=== PATIENT | female | born 1960 | race Caucasian/White ===

== ENCOUNTER 2017-10-17 01:55 | Outpatient (CLI) | payer MEDICAID, SELFPAY ==
--- NOTE | 2017-10-17 10:41 | DI.REPORT_ITS ---
SYMPTOM/DIAGNOSIS: HYPOXIA, R09.02, PALPITATIONS, R00.2, SLEEP APNEA, Z13.89 PA AND LATERAL CHEST: The heart is normal in size. The lungs are clear. The mediastinal structures and pleura appear intact. CONCLUSION: Normal chest.
== END 2017-10-17 01:56 ==
PROVIDERS: PCP Physician Assistant Medical; Visit Provider Physician Assistant Medical
DX: R09.02 Hypoxemia (principal); G47.39 Other sleep apnea; R00.2 Palpitations
CPT/HCPCS: 71046

== ENCOUNTER 2017-10-29 00:53 | Outpatient (CLI) | payer MEDICAID, SELFPAY ==
--- NOTE | 2017-10-29 10:40 | MERGE_ITS ---
*[facility]* *[facility]* [address] [place] [address] Date of study: 10/29/2017 Transthoracic Echocardiography M-mode, complete 2D, complete spectral Doppler, and color Doppler *STUDY CONCLUSIONS* Summary: 1. Left ventricle: The cavity size was normal. Wall thickness was normal. Systolic function was normal. The estimated ejection fraction was 55-60%. Wall motion was normal; there were no regional wall motion abnormalities. 2. Mitral valve: There was mild to moderate regurgitation. 3. Right ventricle: The cavity size was normal. Wall thickness was normal. Systolic function was normal. 4. Tricuspid valve: There was moderate regurgitation. 5. Pulmonic valve: Peak gradient (S): 4.2mm Hg. 6. Pulmonary arteries: Pulmonary systolic pressure was mildly increased. PA peak pressure: 35mm Hg (S). *PATIENT PRESENTATION* Height: 157.5cm ((62in) ) S/D Pressure: 123 / 75 Weight: 92.5kg ((203.6lb) ) BSA: 2.06m^2 Test start time: 10:45 AM. Test stop time: 11:45 AM. ORDERING Alfredo Cabrera MD REFERRING Alfredo Cabrera MD PERFORMING Unknown PERFORMING [facility] SENIOR COPYWRITER RT Cherri Tolbert)(JAMAAL), DORINDA *PROCEDURE DATA* Procedure information: This study was interpreted by [facility]. Pertinent images and digital data are archived for permanent storage and are available for subsequent review. No prior study was available for comparison. Study status: Routine. Transthoracic echocardiography. M-mode, complete 2D, complete spectral Doppler, and color Doppler. A Transthoracic Echocardiogram was performed. Scanning was performed from the parasternal, apical, subcostal, and suprasternal notch acoustic windows. Images were obtained using an [id number] cardiac ultrasound machine. Image quality was adequate. Study completion: The patient tolerated the procedure well. History: PMH: Hypoxia, sleep apnea eval. palpitations. *CARDIAC ANATOMY* Left ventricle: The cavity size was normal. Wall thickness was normal. Systolic function was normal. The estimated ejection fraction was 55-60%. Wall motion was normal; there were no regional wall motion abnormalities. Aortic valve: Trileaflet; normal thickness leaflets. Mobility was not restricted. Doppler: Transvalvular velocity was within the normal range. There was no stenosis. There was no significant regurgitation. VTI ratio of LVOT to aortic valve: 0.72. Valve area (VTI): 2.3cm^2. Indexed valve area (VTI): 1.1cm^2/m^2. Peak velocity ratio of LVOT to aortic valve: 0.75. Valve area (Vmax): 2.3cm^2. Indexed valve area (Vmax): 1.1cm^2/m^2. Mean velocity ratio of LVOT to aortic valve: 0.64. Valve area (Vmean): 2cm^2. Indexed valve area (Vmean): 1cm^2/m^2. Mean gradient (S): 3.6mm Hg. Peak gradient (S): 6.2mm Hg. Aorta: Aortic root: The aortic root was normal in size. Ascending aorta: The ascending aorta was normal in size. Mitral valve: Mildly thickened leaflets. Mobility was not restricted. Doppler: Transvalvular velocity was within the normal range. There was no evidence for stenosis. There was mild to moderate regurgitation. Valve area by pressure half-time: 4.4cm^2. Indexed valve area by pressure half-time: 2.1cm^2/m^2. Peak gradient (D): 3.9mm Hg. Left atrium: The atrium was normal in size. Atrial septum: Poorly visualized. Right ventricle: The cavity size was normal. Wall thickness was normal. Systolic function was normal. Pulmonic valve: Poorly visualized. Doppler: Transvalvular velocity was within the normal range. There was no evidence for stenosis. There was mild regurgitation. Peak gradient (S): 4.2mm Hg. Tricuspid valve: Structurally normal valve. Doppler: Transvalvular velocity was within the normal range. There was no evidence for stenosis. There was moderate regurgitation. Pulmonary artery: Poorly visualized. Pulmonary systolic pressure was mildly increased. Right atrium: The atrium was normal in size. Pericardium: There was no pericardial effusion. Systemic veins: Inferior vena cava: Well visualized. The vessel was patent and normal in size. The respirophasic diameter changes were in the normal range (greater than or equal to 50%), consistent with normal central venous pressure. Baseline ECG: Normal sinus rhythm. Measurements Left ventricle Value Reference LV ID, ED, PLAX 5.0 cm 3.5 - 6.0 LV ID, ES, PLAX 3.7 cm 2.1 - 4.0 LV PW thickness, ED, PLAX 0.9 cm LV end-diastolic volume, 1-p A2C 71 ml LV ejection fraction, 1-p A2C 63 % LV end-diastolic volume, 1-p A4C 66 ml LV ejection fraction, 1-p A4C 58 % LV e', lateral 0.107 m/sec LV E/e', lateral 9 LV e', medial 0.107 m/sec LV E/e', medial 9 LV e', average 0.107 m/sec LV E/e', average 9 Ventricular septum Value Reference IVS thickness, ED, PLAX 0.9 cm LVOT Value Reference LVOT ID, A-P 2.0 cm LVOT area 3.2 cm^2 LVOT peak velocity, S 0.93 m/sec LVOT mean velocity, S 0.58 m/sec LVOT VTI, S 19.5 cm LVOT peak gradient, S 3.5 mm Hg LVOT mean gradient, S 1.6 mm Hg Stroke volume (SV), LVOT DP 61 ml Stroke index (SV/bsa), LVOT DP 30 ml/m^2 Aortic valve Value Reference Aortic valve peak velocity, S 1.2 m/sec Aortic valve mean velocity, S 0.91 m/sec Aortic valve VTI, S 27.0 cm Aortic mean gradient, S 3.6 mm Hg Aortic peak gradient, S 6.2 mm Hg VTI ratio, LVOT/AV 0.72 Aortic valve area, VTI 2.3 cm^2 Velocity ratio, peak, LVOT/AV 0.75 Aortic valve area, peak velocity 2.3 cm^2 Velocity ratio, mean, LVOT/AV 0.64 Aortic valve area, mean velocity 2 cm^2 Aortic valve area/bsa, mean velocity 1 cm^2/m^2 Aorta Value Reference Aortic root ID, ED 3.1 cm Ascending aorta ID, A-P, S 3.1 cm RVOT Value Reference RVOT VTI, S 13.7 cm Left atrium Value Reference LA ID, A-P, ES 3.6 cm LA ID/bsa, A-P 1.8 cm/m^2 <=2.2 LA area, ES, A4C 16.7 cm^2 8.8 - 23.4 LA area, ES, A2C 19 cm^2 LA volume/bsa, ES, 1-p A4C 25 ml/m^2 LA volume, ES, 2-p 52 ml LA volume/bsa, ES, 2-p 25 ml/m^2 LA/aortic root ratio 1.18 Mitral valve Value Reference Mitral E-wave peak velocity 0.99 m/sec Mitral A-wave peak velocity 0.73 m/sec Mitral deceleration time 173 ms 150 - 230 Mitral pressure half-time 50 ms Mitral peak gradient, D 3.9 mm Hg Mitral E/A ratio, peak 1.36 Mitral valve area, PHT, DP 4.4 cm^2 Pulmonary arteries Value Reference PA pressure, S, DP (H) 35 mm Hg <=30 Tricuspid valve Value Reference Tricuspid regurg peak velocity 2.7 m/sec Tricuspid peak RV-RA gradient 28.9 mm Hg Right atrium Value Reference RA area, ES, A4C 15.6 cm^2 8.3 - 19.5 Systemic veins Value Reference Estimated CVP 10 mm Hg Right ventricle Value Reference RV pressure, S, DP (H) 39 mm Hg <=30 Pulmonic valve Value Reference Pulmonic peak gradient, S 4.2 mm Hg Legend: (L) and (H) sharon values outside specified reference range. I have personally reviewed the images and have reviewed and edited the reported findings. Electronically signed by Ankur Yusuf 10/29/2017 17:59
== END 2017-10-29 01:13 ==
PROVIDERS: PCP Physician Assistant Medical; Visit Provider Internal Medicine
DX: R00.2 Palpitations (principal); R09.02 Hypoxemia; I08.1 Rheumatic disorders of both mitral and tricuspid valves
CPT/HCPCS: 93306

== ENCOUNTER 2017-10-30 03:56 | Outpatient (CLI) | payer MEDICAID, SELFPAY | END 2017-10-30 04:16 | PROVIDERS: PCP Physician Assistant Medical; Visit Provider Physician Assistant Medical | DX: R09.02 Hypoxemia (principal) ==

== ENCOUNTER 2017-11-06 02:48 | Outpatient (CLI) | payer MEDICAID, SELFPAY ==
--- NOTE | 2017-11-06 11:07 | PFT_ITS ---
PULMONARY FUNCTION TEST REPORT DATE OF SERVICE: November 06, 2017 REQUESTING PROVIDER: Jody Pichardo N.P. Spirometry shows no evidence of obstructive airways disease, no bronchodilator response. Lung volumes show mild restriction. Diffusion capacity normal. Airways resistance normal. IMPRESSION: While there appears to be mild restrictive physiology, this may be an effort-related phenomenon, as residual volume is extremely low. Further clinical evaluation for possible underlying restrictive lung disease versus respiratory neuromuscular dysfunction or weakness may be considered. Therefore clinical correlation recommended. PAULETTE/alcides D/ SEE SCANNED DOCUMENT IN THE EMR FOR DATA AND GRAPHS
[2017-11-06] MEDS: Albuterol HFA 18 GM 200 PUFF INH IH (13:51)
[2017-11-06] MEDS: Inhaler, Assist Device 1 EACH MC (13:51)
== END 2017-11-06 03:08 ==
PROVIDERS: PCP Physician Assistant Medical; Visit Provider Physician Assistant Medical
DX: R09.02 Hypoxemia (principal)
CPT/HCPCS: 94060; 94150; 94726; 94729

== ENCOUNTER 2017-12-17 13:37 | Outpatient (REF) | payer MEDICAID, SELFPAY ==
[2017-12-17 21:51] LABS: Anion Gap 7.6 mmol/L (3-11); BUN 17 mg/dL (7-18); CO2 30.4 mmol/L (21.0-32.0); CREATININE 0.77 mg/dL (0.55-1.02); Calcium 9.3 mg/dL (8.5-10.1); Chloride 102 mmol/L (98-107); Cholesterol 300 mg/dL (50-200); Glucose 84 mg/dL (70-100); HDL Cholesterol 53 mg/dL (40-60); LDL CHOLESTEROL 215 mg/dL (<100); Potassium 4.7 mmol/L (3.5-5.1); Sodium 140 mmol/L (136-145); TSH 1.76 uIU/mL (0.358-3.74); Triglyceride 146 mg/dL (30-150)
== END 2017-12-17 13:57 ==
LOC: NCHCN 13:37
PROVIDERS: PCP Physician Assistant Medical; Visit Provider Physician Assistant Medical
DX: Z13.29 Encounter for screening for other suspected endocrine disorder (principal); Z13.228 Encounter for screening for other metabolic disorders; Z13.220 Encounter for screening for lipoid disorders; Z00.00 Encounter for general adult medical examination without abnormal findings
CPT/HCPCS: 80048; 80061; 83721; 84443

== ENCOUNTER 2018-09-21 11:51 | Outpatient (REF) | payer MEDICAID, SELFPAY ==
[2018-09-21 19:23] LABS: BUN 10 mg/dL (7-18); CREATININE 0.74 mg/dL (0.55-1.02); Calculated LDL 179 mg/dL; Cholesterol 247 mg/dL (50-200); HDL Cholesterol 49 mg/dL (40-60); Triglyceride 95 mg/dL (30-150)
[2018-09-21 19:59] LABS: Hemoglobin A1C 5.7 % (4.5-6.2)
== END 2018-09-21 12:11 ==
LOC: NCHCN 11:51
PROVIDERS: PCP Physician Assistant Medical; Visit Provider Nurse Practitioner Family
DX: E78.5 Hyperlipidemia, unspecified (principal); R73.9 Hyperglycemia, unspecified
CPT/HCPCS: 80061; 83721; 84520; 82565; 83036

== ENCOUNTER 2018-10-27 10:46 | Outpatient (REF) | payer MEDICAID, SELFPAY | END 2018-10-27 11:06 | LOC: NCHCN 10:46 | PROVIDERS: PCP Physician Assistant Medical; Visit Provider Nurse Practitioner Family | DX: N39.0 Urinary tract infection, site not specified (principal) | CPT/HCPCS: 87086 ==

== ENCOUNTER 2019-11-03 10:37 | Outpatient (REF) | payer MEDICAID, SELFPAY ==
[2019-11-03 22:45] LABS: ALT 26 U/L (14-59); AST 20 U/L (15-37); Alkaline Phosphatase 72 U/L (46-116); Anion Gap 6.6 mmol/L (3-11); BUN 12 mg/dL (7-18); Bilirubin, Total 0.4 mg/dL (0.2-1.0); CO2 28.4 mmol/L (21.0-32.0); CREATININE 0.69 mg/dL (0.55-1.02); Calculated LDL 222 mg/dL (<100); Chloride 103 mmol/L (98-107); Cholesterol 295 mg/dL (<200); Glucose 88 mg/dL (74-106); HDL Cholesterol 58 mg/dL (40-60); Potassium 4.1 mmol/L (3.5-5.1); Sodium 138 mmol/L (136-145); Triglyceride 77 mg/dL (<150)
== END 2019-11-03 10:57 ==
LOC: NCHCN 10:37
PROVIDERS: PCP Physician Assistant Medical; Visit Provider Physician Assistant
DX: E78.5 Hyperlipidemia, unspecified (principal)
CPT/HCPCS: 80053; 80061

== ENCOUNTER 2020-01-31 21:26 | Outpatient (REF) | payer MEDICAID, SELFPAY ==
[2020-01-31 19:37] LABS: HCT 41.6 % (36.0-46.0); HGB 13.4 g/dL (11.2-15.7); MCH 29.1 pg (27.0-33.0); MCHC 32.2 % (32.0-36.0); MCV 90.2 fL (80-95); MPV 10.2 fL (8.0-11.0); Platelet Count 291 10^3/uL (130-400); RBC 4.61 10^6/uL (3.93-5.22); RDW 13.3 % (11.7-14.6); RDW-SD 43.8 fL; WBC 10.93 10^3/uL (4.4-10.8)
[2020-02-02 12:51] LABS: IgA 159 mg/dL (85-499); Interpretation (See Note); Tissue Transglutaminase IgA <1.2 U/mL (<4.0)
== END 2020-01-31 21:46 ==
LOC: NCHCN 21:26
PROVIDERS: PCP Physician Assistant Medical; Visit Provider Internal Medicine
DX: K52.9 Noninfective gastroenteritis and colitis, unspecified (principal)
CPT/HCPCS: 82784; 83516; 85027

== ENCOUNTER 2020-02-08 18:51 | Outpatient (REF) | payer MEDICAID, SELFPAY ==
[2020-02-08 20:21] LABS: ALT 69 U/L (14-59); AST 46 U/L (15-37); Albumin 4.1 g/dL (3.4-5.0); Alkaline Phosphatase 79 U/L (46-116); Bilirubin, Total 0.4 mg/dL (0.2-1.0); Calculated LDL 108 mg/dL (<100); Cholesterol 180 mg/dL (<200); HDL Cholesterol 57 mg/dL (40-60); Total Protein 7.2 g/dL (6.4-8.2); Triglyceride 76 mg/dL (<150)
== END 2020-02-08 19:11 ==
LOC: NCHCN 18:51
PROVIDERS: PCP Physician Assistant Medical; Visit Provider Physician Assistant
DX: E78.5 Hyperlipidemia, unspecified (principal)
CPT/HCPCS: 80061; 80076

== ENCOUNTER 2020-05-19 15:17 | Outpatient (REF) | payer MEDICAID, SELFPAY ==
--- NOTE | 2020-05-19 11:30 | PAPFT_PTH ---
PATIENT: Meredith Lizama LOC: [facility]#:[id number] AGE/SX: 60/F ROOM: RE05/19/[address]: Gina Sifuentes : 1960 BED: DIS: 05/19/2020 SPEC #: [id number] RECD: 05/19/20 17:31 STATUS: ANGIE DOZIER #: [id number] AUDREY: 05/19/20 11:[address]: Gina Sifuentes DEPT: [facility] Cytology RECD BY: Priya Cross ENTERED: 05/19/20 17:31 SP TYPE: PAPFT OTHR DR: Delroy Logan V Tissues: 1 - CX/ENDOCX FOR PAP SMEARS Procedures: PAP THIN PREP/UVM Screening HPV DNA PROBE Comments: [id number]
== END 2020-05-19 15:18 | disposition home or self-care (01) ==
LOC: NCHCN 15:17
PROVIDERS: PCP Physician Assistant Medical; Visit Provider Physician Assistant
DX: Z12.4 Encounter for screening for malignant neoplasm of cervix (principal); Z01.419 Encounter for gynecological examination (general) (routine) without abnormal findings; Z11.51 Encounter for screening for human papillomavirus (HPV)
CPT/HCPCS: 88142; 87624

== ENCOUNTER 2020-11-15 10:56 | Outpatient (REF) | payer MEDICAID, SELFPAY ==
[2020-11-15 20:25] LABS: Anion Gap 7.3 mmol/L (3-11); BUN 15 mg/dL (7-18); CO2 29.7 mmol/L (21.0-32.0); CREATININE 0.7 mg/dL (0.55-1.02); Calcium 8.8 mg/dL (8.5-10.1); Chloride 104 mmol/L (98-107); Glucose 87 mg/dL (74-106); Potassium 4.4 mmol/L (3.5-5.1); Sodium 141 mmol/L (136-145)
== END 2020-11-15 10:57 | disposition home or self-care (01) ==
LOC: NCHCN 10:56
PROVIDERS: PCP Physician Assistant Medical; Visit Provider Physician Assistant
DX: R73.03 Prediabetes (principal); E78.5 Hyperlipidemia, unspecified
CPT/HCPCS: 80048

== ENCOUNTER 2021-12-10 08:12 | Outpatient (CLI) | payer MEDICAID, SELFPAY ==
--- NOTE | 2021-12-10 08:00 | RT.EKG_ITS ---
APPROVED REPORT Exam: Resting ECG Reason for Exam: palpitations Patient Location: O HR:77 bpm ECG Measurements Heart Rate 77 AXIS VA 122 P 40 QRSd 101 QRS 3 QT 373 T 42 QTc 423 Conclusion Sinus rhythm...normal P axis, V-rate 50- 99 Normal Electrocardiogram
== END 2021-12-10 08:13 | disposition home or self-care (01) ==
LOC: DI.CARD 08:13
PROVIDERS: PCP Physician Assistant Medical; Visit Provider Internal Medicine Cardiovascular Disease
DX: R00.2 Palpitations (principal)
CPT/HCPCS: 93010

== ENCOUNTER → 2021-12-25 11:27 | Outpatient (CLI) | payer MEDICAID, SELFPAY ==
--- NOTE | 2021-12-25 09:15 | DI.US_ITS ---
APPROVED REPORT EXAM: Comprehensive 2D, Doppler, and color-flow Echocardiogram Patient Location: Out-Patient Resin Painter: Marjorie Ortiz RDCS (AE) Indications: Palpitations, MR Other Information Study Quality: Adequate Conclusion Normal left ventricular wall thickness and chamber size. Estimated ejection fraction is 60 to 65%. Wall motion is normal Normal right ventricular size and systolic function Both atria are normal in size There are no structural valvular abnormalities There is trace mitral regurgitation, trace to mild tricuspid regurgitation Estimated right ventricular systolic pressure is 30 mmHg Wall motion Left Ventricle The left ventricle is normal size. The left ventricular systolic function is normal. The left ventric ular ejection fraction is within the normal range. There is normal left ventricular wall thickness. T here is normal LV segmental wall motion. There is no ventricular septal defect visualized. LVEF is 60 -65%. Right Ventricle The right ventricle is normal size. The right ventricular systolic function is normal. The RVSP is 29 .9mmHg. Atria The left atrium size is normal. The right atrium size is normal. The interatrial septum is intact wit h no evidence for an atrial septal defect. Aortic Valve The aortic valve is normal in structure. Aortic valve is trileaflet. There is no aortic valvular sten osis. No aortic regurgitation is present. Mitral Valve The mitral valve is normal in structure. No evidence of mitral valve stenosis. Trace mitral regurgita tion. Tricuspid Valve The tricuspid valve is normal in structure. There is no tricuspid valve stenosis. Trace to mild tricu spid regurgitation. Pulmonic Valve Pulmonic valve is not well visualized. There is no pulmonic valvular stenosis. Trace to mild pulmonic regurgitation. Great Vessels The aortic root is normal in size. The ascending aorta is normal in size. Aortic arch is normal in ca liber. IVC is normal in size and collapses >50% with inspiration. Pericardium There is no pericardial effusion. 2D Dimensions IVSD d PLAX 0.86 cm F: 0.6-1.0 LV Vol A2C d MOD 113.7 mL LVPW d PLAX 0.88 cm F: 0.6 - 1.0 LV Vol A4C d MOD 78.1 mL LVID d PLAX 4.97 cm F: 3.8 - 5.2 LA vol/ BSA A2C s A-L 25.7 mL/m2 LVDs 3.25 cm F: 2.2 - 3.5 LA vol/ BSA A4C s A-L 17.3 mL/m2 Ao Root d 2.66 cm F: 2.7 - 3.3 LA Vol/ BSA Biplane s A-L 21.2 mL/m2 RA Area A4C 11.78 cm2 LA Area A4C s MOD 13.26 cm2 RA Vol/ BSA A4C s A-L 15.9 mL/m2 LA Area A2C s MOD 16.06 cm2 Ao Asc Diam d 2.87 cm F: 2.3 - 3.1 LV EF A4C MOD 65.2 % LV EF Teichholz 62.7 % LV EF A2C MOD 60.7 % LVEF (Hugo's) 61.69 % F: 54 - 74 LV EF Biplane MOD 61.7 % LV Volume 74.44 mL F: 46 - 106 SV 59.36 mL LV Volume Index 40.90 mL/m2 F: 29 - 61 SV Index 32.48 mL/m2 LV Vol Biplane MOD 96.2 mL FS 34.00 % M-Mode TAPSE 2.65 cm (M/F) >1.7 LV Diastology MV E' medial 0.114 (>0.07 m/s) E/A Ratio 1.2 LV E/e MED 7.10 (<14) MV E Vmax 0.81 (0.4-1.3 m/s) MV E' lateral 0.119 (>0.1 m/s) MV A Vmax 0.70 (0.4-1.3 m/s) LV E/e LAT 6.80 (<14) MV E/A Ratio 1.10 MV E/E' medial 7.11 MV E/E' lateral 6.82 Aortic Valve LVOT Area 3.18 cm2 AoV Area Vmax 2.11 cm2 LVOT Vmax 0.89 m/s AoV Area/ BSA (Vmax) 1.16 cm2/m2 LVOT Mean Manan. 0.58 m/s JAQUAN Mean Manan. 2.01 cm2 LVOT Peak Grad 3.2 mmHg JAQUAN Mean Manan. Index 1.10 cm2/m2 LVOT Mean Grad 1.6 mmHg LVOT VTI 0.214 m LVOT Diam s 2.00 cm AoV Vmax 1.34 m/s Velocity Ratio 0.66 AoV Mean Manan. 0.92 m/s AoV Peak Grad 7.2 mmHg LVOT SV 67.97 mL AoV Mean Grad 3.9 mmHg AoV VTI 0.281 m AoV Area VTI 2.42 cm2 AoV Area/ BSA (VTI) 1.32 cm/m2 Mitral Valve MV DT 184 (160-240 msec) MV PHT 53 msec MV Area PHT 4.13 cm2 MV VTI 0.333 m MV Area VTI 2.04 (4.0-6.0 cm2) Pulmonary Valve PV Vmax 1.06 (0.5-1.5 m/s) RVOT Peak Gr. 1.58 mmHg PV Peak Grad 4.5 mmHg RVOT Mean Gr. 0.85 mmHg PV Mean Grad 2.4 mmHg RVOT VTI 0.154 m PV VTI 0.232 m RVOT Vmax 0.63 m/s Tricuspid Valve TR Peak Grad 26.8 mmHg TR Vmax 2.59 m/s RA Pressure 3.00 mmHg RVSP (TR) 29.9 mmHg
== END ==
PROVIDERS: PCP Physician Assistant; Visit Provider Internal Medicine Cardiovascular Disease
DX: I34.0 Nonrheumatic mitral (valve) insufficiency (principal); R00.2 Palpitations
CPT/HCPCS: 93306

== ENCOUNTER 2022-07-23 13:37 | Outpatient (REF) | payer MEDICAID, SELFPAY ==
[2022-07-23 18:33] LABS: HCT 41.2 % (36.0-46.0); HGB 13.4 g/dL (11.2-15.7); MCH 29.5 pg (27.0-33.0); MCHC 32.5 % (32.0-36.0); MCV 91 fL (80-95); MPV 10.4 fL (8.0-11.0); Platelet Count 280 10^3/uL (130-400); RBC 4.55 10^6/uL (3.93-5.22); RDW 13.6 % (11.7-14.6); RDW-SD 45.6 fL; WBC 7.64 10^3/uL (4.4-10.8)
[2022-07-23 18:53] LABS: ALT 30 U/L (14-59); AST 27 U/L (15-37); Alkaline Phosphatase 76 U/L (46-116); Anion Gap 6.9 mmol/L (3-11); BUN 15 mg/dL (7-18); Bilirubin, Total 0.5 mg/dL (0.2-1.0); CO2 29.1 mmol/L (21.0-32.0); CREATININE 0.7 mg/dL (0.55-1.02); Calcium 8.8 mg/dL (8.5-10.1); Calculated LDL 98 mg/dL (<100); Chloride 106 mmol/L (98-107); Cholesterol 170 mg/dL (<200); Estimated GFR 98.95 (mL/min/1.73m2); Glucose 94 mg/dL (74-106); HDL Cholesterol 65 mg/dL (40-60); Sodium 142 mmol/L (136-145); Total Protein 7.5 g/dL (6.4-8.2); Triglyceride 35 mg/dL (<150)
[2022-07-23 19:08] LABS: Vitamin D 25 Total 31.6 ng/mL (30-100)
== END 2022-07-23 13:38 | disposition home or self-care (01) ==
LOC: NCHCN 13:37
PROVIDERS: PCP Physician Assistant; Visit Provider Physician Assistant
DX: R73.03 Prediabetes (principal); K75.81 Nonalcoholic steatohepatitis (NASH); E78.5 Hyperlipidemia, unspecified; E55.9 Vitamin D deficiency, unspecified
CPT/HCPCS: 80053; 80061; 82306; 85027

== ENCOUNTER → 2022-10-15 12:34 | Outpatient (CLI) | payer MEDICAID, SELFPAY ==
--- NOTE | 2022-10-15 | DI.RAD_ITS ---
Exam(s) XR HIP RT COMPLETE AP PELVIS EXAM: XR HIP RT COMPLETE AP PELVIS CLINICAL HISTORY: RT HIP WANG, M25.551. TECHNIQUE: 2D digital imaging was performed. COMPARISON: No exams were available for comparison FINDINGS: Two views: There is no evidence of pelvic nor hip fracture. Minimal hip joint narrowing bilaterally. On the ad ditional lateral view of the right hip there is femoral head osteophyte noted. Bone density normal. No osseous lesions. IMPRESSION: Some degenerative change in the right hip as described above. DATA REPOSITORY: RADIATION DOSE DELIVERED:
== END ==
PROVIDERS: PCP Physician Assistant; Visit Provider Physician Assistant
DX: M16.11 Unilateral primary osteoarthritis, right hip (principal)
CPT/HCPCS: 73502

== ENCOUNTER → 2022-12-19 02:32 | Outpatient (CLI) | payer MEDICAID, SELFPAY ==
--- NOTE | 2022-12-19 | DI.MRI_ITS ---
Exam(s) MR LOWER JOINT RT WO EXAM: MR LOWER JOINT RT WO CLINICAL HISTORY: RT HIP PAIN, M25.551 TECHNIQUE: Multiplanar multisequence MRI of Pelvis was performed COMPARISON: CR XR HIP RT COMPLETE AP PELVIS from 10/15/2022 FINDINGS: Bones: There is no fracture or contusion pattern. There is a small focus of high signal in the righ t superior acetabulum. Findings may be degenerative. There is mild spurring at the margin of the fe moral heads. Joints: No significant joint effusion . The SI joints and symphysis pubis are well maintained. Musculotendinous structures: Musculotendinous structures demonstrate no abnormality. Intrapelvic structures demonstrate no significant abnormality. IMPRESSION: Focus of marrow edema in the right superior acetabulum may be degenerative. No evidence joint effus ion, tendon tear or inflammation. DATA REPOSITORY:
== END ==
PROVIDERS: PCP Physician Assistant; Visit Provider Physician Assistant
DX: M25.551 Pain in right hip (principal)
CPT/HCPCS: 73721

== ENCOUNTER 2023-07-24 16:13 | Outpatient (REF) | payer MEDICAID, SELFPAY ==
[2023-07-24 21:32] LABS: ALT 25 U/L (14-59); AST 24 U/L (15-37); Alkaline Phosphatase 72 U/L (46-116); Anion Gap 10.5 mmol/L (3-11); BUN 14 mg/dL (7-18); Bilirubin, Total 0.3 mg/dL (0.2-1.0); CO2 26.5 mmol/L (21.0-32.0); CREATININE 0.7 mg/dL (0.55-1.02); Calcium 9.1 mg/dL (8.5-10.1); Calculated LDL 201 mg/dL (<100); Chloride 106 mmol/L (98-107); Cholesterol 277 mg/dL (<200); Estimated GFR 98.34 (mL/min/1.73m2); Glucose 99 mg/dL (74-106); HDL Cholesterol 66 mg/dL (40-60); Potassium 4.1 mmol/L (3.5-5.1); Sodium 143 mmol/L (136-145); Total Protein 7.5 g/dL (6.4-8.2); Triglyceride 52 mg/dL (<150)
== END 2023-07-24 16:14 | disposition home or self-care (01) ==
LOC: NCHCN 16:13
PROVIDERS: PCP Physician Assistant; Visit Provider Physician Assistant
DX: E78.5 Hyperlipidemia, unspecified (principal)
CPT/HCPCS: 80053; 80061

== ENCOUNTER 2023-09-01 15:04 | Outpatient (REF) | payer MEDICAID, SELFPAY ==
[2023-09-01 20:04] LABS: HCT 42.1 % (36.0-46.0); HGB 13.7 g/dL (11.2-15.7); MCH 29.8 pg (27.0-33.0); MCHC 32.5 % (32.0-36.0); MCV 92 fL (80-95); MPV 10.5 fL (8.0-11.0); Platelet Count 299 10^3/uL (130-400); RDW 13.9 % (11.7-14.6); RDW-SD 46.4 fL; WBC 8.54 10^3/uL (4.4-10.8)
== END 2023-09-01 15:05 | disposition home or self-care (01) ==
LOC: NCHCN 15:04
PROVIDERS: PCP Physician Assistant; Visit Provider Nurse Practitioner Family
DX: R10.9 Unspecified abdominal pain (principal)
CPT/HCPCS: 85027

== ENCOUNTER → 2023-09-11 01:42 | Outpatient (CLI) | payer MEDICAID, SELFPAY ==
--- NOTE | 2023-09-11 | DI.CT_ITS ---
Exam(s) CT ABDOMEN PELVIS W EXAM: CT ABDOMEN PELVIS W CLINICAL HISTORY: ABD PAIN, R10.9. TECHNIQUE: Imaging Protocol: Axial computed tomography images with coronal and sagittal reformatted images were created and reviewed CONTRAST MATERIAL: Intravenous: Omnipaque-350 100cc Oral: Yes. Oral contrast was also administered for bowel opacification. COMPARISON: No exams were available for comparison FINDINGS: VISUALIZED LUNG BASES: No nodules nor pleural effusions evident. ABDOMEN: There is no ascites. LIVER: There are no focal hepatic lesions evident. No dilated intrahepatic ducts. GALLBLADDER/BILIARY: No obvious gallbladder pathology. CBD is not dilated. PANCREAS: No evidence of pancreatic mass nor dilatation of the pancreatic duct. SPLEEN: Spleen is not enlarged. No obvious intrasplenic lesions. Splenic and portal veins are paten t. ADRENALS: There are no significant adrenal masses. KIDNEYS:Left kidney unremarkable. There is a large calculus in the right renal pelvis which measures 1.5 x 0.9 x 1.1 cm. There are other smaller calculi in the lower pole infundibulum of the right kid kayode. There is some enhancement in the wall of the right renal pelvis and upper right ureter. There no calculi seen lower down in the right ureter nor within the lumen of the urinary bladder. There is very mild dilatation of the infundibulum of the right kidney. Right renal vein is patent. There is no perinephric streaking.. ABDOMINAL AORTA: Abdominal aorta is not enlarged. LYMPH NODES:There is no retroperitoneal nor paraaortic adenopathy. ABDOMINAL WALL: No evidence of significant anterior abdominal wall nor inguinal hernia. GI: There is no evidence of bowel obstruction, free air, nor abscess. PELVIS: GI: No evidence of appendicitis.There is sigmoid diverticulosis without evidence of obvious acute div erticulitis. LYMPH NODES: There is no intrapelvic nor inguinal adenopathy. REPRODUCTIVE: Uterus and adnexal regions appear unremarkable. There is no free fluid in the pelvis. URINARY BLADDER: No calculi nor obvious masses evident OSSEOUS: No fractures and no significant osseous lesions. Disc space narrowing at L5-S1. No listhesis.. IMPRESSION: 1. There is a prominent 15 x 9 x 11 mm calculus in the right renal pelvis with some uniform enhanceme nt of the right renal pelvis and upper right ureter wall and mild ipsilateral hydronephrosis. There are 2 other smaller calculi in the lower pole region of the ipsilateral-right kidney. Opposite-left kidney appears unremarkable. 2. Sigmoid diverticulosis without evidence of acute diverticulitis. No appendicitis. RADIATION DOSE DELIVERED: Total DLP DATA REPOSITORY: All CT scans at this facility are submitted to the National Radiology Data Registry (NRDR) Dose Index Registry (DIR) with the [employer] (ACR). RADIATION OPTIMIZATION: All CT scans at this facility use at least one of these dose optimization te chniques: automated exposure control; mA and/or kV adjustment per patient size (includes targeted exa ms where dose is matched to clinical indication); or iterative reconstruction.
[2023-09-11 09:02] LABS: CREATININE 0.8 mg/dL (0.55-1.02); Estimated GFR 83.78 (mL/min/1.73m2)
[2023-09-11] MEDS: Barium Sulfate 2% W/V-Berry Smoothie 450 ML BTL PO ×2 (09:05→09:06)
[2023-09-11] MEDS: Omnipaque 350 MG/ML 100 ML BTL IJ (11:10)
== END ==
PROVIDERS: PCP Nurse Practitioner Family; Visit Provider Nurse Practitioner Family
DX: R10.84 Generalized abdominal pain (principal); N20.2 Calculus of kidney with calculus of ureter; N20.0 Calculus of kidney; K57.30 Diverticulosis of large intestine without perforation or abscess without bleeding; Z01.812 Encounter for preprocedural laboratory examination
CPT/HCPCS: 74177; 82565; J3490

== ENCOUNTER 2023-09-16 11:42 | Day surgery (SDC) | payer MEDICAID, SELFPAY ==
--- NOTE | 2023-09-15 13:26 | PDOC.DSDIS_ITS ---
Date of service: 09/16/23 Time of Service: 16:49 Discharge Plan Disposition Patient Disposition: Home Condition: Good Discharge Details Reason For Visit: stomach/colon scope Attending Provider: Josefa Peace Primary Care Provider: Pamela Sanchez Home Meds and New Rx's Prescriptions: Continued magnesium chloride 70 mg tablet,delayed release (DR/EC) 210 mg PO DAILY famotidine [Pepcid] 40 mg tablet 40 mg PO BID Qty: 60 4RF ketoconazole 2 % cream 1 applic topical BID Discontinued naproxen 500 mg tablet 500 mg PO BID PRN (Reason: pain) Qty: 60 0RF ibuprofen 800 mg tablet 800 mg PO BID PRN Discharge Instructions Additional Instructions: DSU Colonoscopy Post- Op Instructions Instructions for Everyone who is given Anesthesia: For your safety, please do the following for the next twenty-four (24) hours: *Do Not operate a motor vehicle (car, truck, motorcycle, etc.) *Do Not drink alcoholic beverages or use any recreational drugs for the first 24 hours or while taking pain medications. The medications in your body may have a reaction that can be dangerous. *Do Not make any important decisions or sign any important papers. Findings: Hiatal hernia Diverticula and colon polyps Internal hemorrhoids Follow up: My office will send you a letter in 2 to 3 weeks time with the results of the biopsies and when we want you to repeat the colonoscopy. Make sure you are moving your bowels on a regular basis and avoid straining. If you have problems with constipation/straining to move your bowels, then it is recommended you start a fiber supplement such as Metamucil. 1. No lifting over 20 pounds or strenuous activity for the first 24 hours after your procedure. After 24 hours there are no restrictions on your activity but you may feel fatigued for a few days. 2. After you arrive home you may have a light meal and return to your normal diet as you can tolerate it without feeling sick to your stomach. 3. You may have a bloated, gaseous feeling in your belly (abdomen) after a colonoscopy. Passing gas and belching will help. Walking or lying down on your left side with your knees flexed may relieve the discomfort. Call the office at [phone] (Office) or [phone] (Hospital) right away if you notice any of the following: a.Vomiting of blood or ?coffee ground stools?. b.Rectal bleeding 1Tbsp, blood clots or continuous bleeding. c.Severe belly (abdominal) pain. d.A hard distended belly (abdomen) and an inability to pass gas. 4. Please don?t expect to have a normal BM (bowel movement) for 2-3 days after your procedure. 5. If there are questions regarding the findings of your procedure, please conta ct your doctor 6. If you are unable to contact your doctor with a problem, contact the hospital at [phone]. 7. Continue all your regular medications unless directed otherwise. I understand the above instructions and have no questions. Signature of Patient or Adult Escort Name of Responsible Adult Escort Signature of Nurse Date/Time Stand Alone Forms: Anesthesia Discharge Inst., Mirna Fong (DSU) Activity:: see above Diet:: see above Discharge Orders Discharge Orders: Discharge Order (Routine); Ordered 09/16/23 Ordered By: Josefa Peace DS: Diagnosis Discharge Diagnosis (1) Mitral regurgitation: Status: Chronic (2) Prediabetes: Status: Acute (3) Obesity: Status: Chronic (4) Nonalcoholic steatohepatitis (FLANAGAN): Status: Acute (5) Rectal bleeding: Status: Acute Asessment and Plan: The patient is seen and examined after their colonoscopy.? The patient has been able to pass gas.? They are not having abdominal pain.? They have been able to tolerate liquids and a snack.? They do not have any nausea or vomiting.? They are not having any chest pain or shortness of breath.??? They are not having any rectal bleeding. Their vital signs have been stable-see nursing notes. We discussed findings during their colonoscopy, and any biopsies that were done/polyps that were removed. The patient will be sent a letter with any biopsy results, and when to repeat the colonoscopy.-see discharge instructions. Patient was given explicit instructions to follow-up regarding colonoscopy-refer to discharge instructions.? We reviewed resumption of medications. Patient verbalized understanding and discharged in stable and satisfactory condition- See nursing notes. (6) Abdominal pain: Status: Acute (7) Degenerative joint disease of right hip: Status: Chronic (8) Fibromyalgia: Status: Acute (9) Hyperlipidemia: (10) BMI 39.0-39.9,adult: (11) Macular degeneration: (12) Reflux gastritis: (13) GERD (gastroesophageal reflux disease): (14) Sleep-related nonobstructive alveolar hypoventilation, idiopathic: (15) Hiatal hernia with GERD: Status: Acute (16) Internal hemorrhoids with complication: Status: Acute (17) Diverticula of colon: Status: Acute (18) Colon polyp: Status: Acute
--- NOTE | 2023-09-15 21:32 | ENDO_ITS ---
Date of service: 09/16/23 Time of Service: 16:00 Endoscopy Report DATE OF PROCEDURE: 09/16/23 PRE-OP DIAGNOSIS: epigastric pain/rectal bleeding POST-OP DIAGNOSIS: other SURGEON: Josefa Peace ANESTHESIA TYPE: General:No Airway PATHOLOGY: other COMPLICATIONS: None DISPOSITION: same day PROCEDURE DESCRIPTION: After informed consent was obtained 9Risks: bleeding, infections, perforations {which could require surgery or antibiotics and prolonged hospital stay}, or ostomy, and complications of anaesthesia, rupal aspiration). The patient was take to the procedure room and placed in a supine position. Monitors were applied and a time out was done. The patients name, date of , procedure type, allergies to medications and metal in their body was reviewed. A bite block was placed and the patient was sedated. Once sedated and comfortable an Olympus gastroscope (see RN notes for scope #) was advanced through the oropharynx which was grossly normal, and passed into the esophagus. The proximal and mid- esophagus were normal. The distal esophagus does not show any: dilation/strictures/varices/erosions or ulcers/bleeding noted. The scope was advanced into the stomach and through the pylorus into the proximal jejunum. A bx is taken for celiac Dx . The duodenum was noted to be . Biopsies were done of the duodenal bulb.. The scope was retracted back into the stomach and biopsies were taken of the antrum. There were no gastritis/gastropathy/ ulcers/masses noted. The scope was retroflexed. The cardia and fundus were noted to be normal. There small hiatal sliding-type hernia noted. The scope was retracted back into the esophagus and biopsies were done of the GE junction (in all 4 quadrants) and distal esophagus (2cm above the GE junction) to rule out Colby's. All specimens are retrieved and no bleeding was noted. The Z line was regular. The GE junction was at 38 cm. The scope was removed and the patient was woken up and taken back to [facility] in stable condition.
--- NOTE | 2023-09-15 21:32 | W.COLOREPORT ---
Date of service: 09/16/23 Time of Service: 16:00 Colonoscopy Report Date of procedure: 09/16/23 Pre-op diagnosis general: rectal bleeding Post-op diagnosis procedure note: other (internal hemorrhoids/sigmoid diverticula/polyps) Surgeon: Josefa Peace Anesthesia Type: General:No Airway Estimated blood loss (mL): 2 Pathology: other Complications: None Disposition: same day Prep: Miralax/Dulcolax Retraction Time: 28 Procedure Description: After informed consent was obtained, explaining risks of the procedure, including but not limits to: bleeding, infections, complications of anesthesia, perforations (which may require antibiotics and /or surgery and stay in the hospital), and abdominal pain/cramping. The patient was taken to the procedure room and placed in a left decubitous position. Monitors were applied and a time out was done. The patients name, date of , procedure, allergies to medications and metal in their body was reviewed. The patient was then sedated. Once sedated and comfortable a rectal exam was done. External exam was normal. Internal exam revealed a normal sphincter tone and no palpable masses. The previously lubricated Olympus scope was then introduced (see RN notes for scope number) and retrofelexed. Grade II internal hemorrhoids were identified. The scope was then advanced to the cecum without difficulty. The TI and appendiceal orifice were identified. The scope was then slowly retracted over 28 minutes back into the rectum. Random biopsies were taken with a cold biting forcep at the cecum/60 cm / 30 cm and rectum. A flat, .75cm polyp was found at 30cm. This was removed with a cold snare. All of the specimen was retrieved. This will be sent to pathology. There is no bleeding noted from the polypectomy site. A flat, .75cm polyp was found at 60cm. This was removed with a cold biting forceps. All of the specimen was retrieved. This will be sent to pathology. There is no bleeding noted from the polypectomy site. A flat, .5cm polyp was found at 20cm. This was removed with a cold biting forceps. All of the specimen was retrieved. This will be sent to pathology. There is no bleeding noted from the polypectomy site. Diverticula: She has moderate diverticula both in size and in number. These are confined to the sigmoid colon. There is no signs of active bleeding faction.. The mucosa is pink and healthy w/ a normal vascular pattern. The scope was removed, and the patient was woken up and taken back to Same day surgery in stable condition. The patient tolerated the procedure well and there were no immediate complications. Follow up: The patient should follow up in ~5 years, path pending, unless they develop changes in bowel habits or other new gastrointestinal complaints. Lafferty Bowel Prep Lafferty Bowel Prep Right Colon: 2 Left Colon: 3 Transverse Colon: 3 Total Score: 8
[2023-09-16 12:11] VITALS: BP 113/86; PULSE 90; RESP 16; TEMP 36.5; O2SAT 98
[2023-09-16] MEDS: Lactated Ringers 1,000 ML 80 ML IV (12:49)
--- NOTE | 2023-09-16 13:17 | W.ANESPRE ---
General Info Date of Service Date Performed: 09/16/23 Height: 5 ft 2 in Weight: 82.1 kg Body Mass Index (BMI): 33.0 Surgical Procedure: Operation Date: 09/16/23 13:35 Proposed Procedure Side Surgeon p Colonoscopy/Gastroscopy Josefa Peace, Meds Allergies and Home Medications Allergies Allergy/AdvReac Type Severity Reaction Status Date / Time paroxetine (From Paxil) AdvReac Intermediate Nausea Verified 09/16/23 12:20 Home Medication ?Medication ?Instructions ?Recorded magnesium chloride 70 mg 210 mg PO DAILY 12/10/21 (magnesium chloride) tablet,delayed release ketoconazole 2 % topical cream 1 applic topical BID 09/02/23 famotidine 40 mg tablet (Pepcid) 40 mg PO BID #60 tabs 09/11/23 Current Visit Medications: Current Medications Generic Name Dose Route Start Last Admin Trade Name Freq PRN Reason Stop Dose Admin Hyoscyamine Sulfate 0.125 mg 09/16/23 01:17 Hyoscyamine 0.125 Mg Sl/Oral/Chew SL 10/16/23 01:16 DIRECTED PRN Ringer's Solution 1,000 mls @ 80 mls/hr 09/16/23 06:00 09/16/23 12:49 IV 10/15/23 23:59 80 mls/hr INFUSION DREA Administration IV Miscellaneous Supplies 1 each 09/16/23 06:00 Iv Access IV 10/15/23 23:59 DIRECTED DREA Ondansetron HCl 4 mg 09/16/23 01:17 Ondansetron 4 Mg/2 Ml Vial IVP 10/16/23 01:16 Q4H PRN PRN Nausea / Vomiting Sodium Chloride 0 ml 09/16/23 06:00 Normal Saline Flush 10 Ml Syr IV 10/15/23 23:59 PRN PRN Sodium Chloride 0 ml 09/16/23 06:00 Normal Saline 10 Ml Vial IJ 10/15/23 23:59 DIRECTED PRN Sterile Water 0 ml 09/16/23 06:00 Water,Injection,Sterile 10 Ml Vial IJ 10/15/23 23:59 DIRECTED PRN PFSH Active Problems Active Problems: Problem Status Onset Code Rectal bleeding Acute K62.5 Abdominal pain Acute R10.9 Trochanteric bursitis, right hip Acute M70.61 Femoroacetabular impingement of right hip Acute M25.851 Degenerative joint disease of right hip Chronic M16.11 Obesity Chronic E66.9 Fibromyalgia Acute M79.7 Prediabetes Acute R73.03 Nonalcoholic steatohepatitis (FLANAGAN) Acute K75.81 Palpitations Acute R00.2 Mitral regurgitation Chronic I34.0 Medical History Medical History Sleep-related nonobstructive alveolar hypoventilation, idiopathic Mass of right breast GERD (gastroesophageal reflux disease) Macular degeneration Lumbar radiculopathy (05/19/15) L sided Reflux gastritis Knee pain, left BMI 39.0-39.9,adult Hyperlipidemia Depression Bursitis of hip receiving injections Sciatica of right side 04/2015 beginning Gabapentin Surgical History Surgical History Ligation of fallopian tube Tonsillectomy and adenoidectomy Repair, Pyloric Stenosis section Colonoscopy - IV Sedation (09/12/15) Dr Weller, repeat 10 yrs Tobacco Smoking/Tobacco Use Status: Never Alcohol Alcohol Intake: current Alcohol intake frequency: a few times a month Substance Use Substance use: Never Substance use type: does not use Vital Signs and Lab Results Vital Signs Most Recent Vital Signs in EMR: Most Recent Vital Signs Temp Pulse Resp BP Pulse Ox 36.5 C 90 16 113/86 98 09/16/23 12:11 09/16/23 12:11 09/16/23 12:11 09/16/23 12:11 09/16/23 12:11 Lab Results Blood Type / Crossmatch: No Data to Display Complete Blood Count: White Blood Count 8.54 10^3/uL (4.4-10.8) 09/01/23 14:05 Red Blood Count 4.60 10^6/uL (3.93-5.22) 09/01/23 14:05 Hemoglobin 13.7 g/dL (11.2-15.7) 09/01/23 14:05 Hematocrit 42.1 % (36.0-46.0) 09/01/23 14:05 Platelet Count 299 10^3/uL (130-400) 09/01/23 14:05 Complete Metabolic Panel: Creatinine 0.8 mg/dL (0.55-1.02) 09/11/23 08:45 Est GFR (CKD-EPI 2020) 83.78 (mL/min/1.73m2) 09/11/23 08:45 Liver Function Panel: No Data to Display Coagulation Panel: No Data to Display Cardiac Panel: No Data to Display Arterial Blood Gas: No Data to Display Venous Blood Gas: No Data to Display Pancreas Panel: No Data to Display Thyroid Panel: No Data to Display Infectious Disease: No Data to Display Blood Cultures: No Data to Display Toxicology Panel: No Data to Display Anesthesia Assessment and Plan Anesthesia History Personal History: No History of Anesthesia Complications Family History: No Family History of Anesthesia Complications Exercise Tolerance Exercise Tolerance: Metabolic Equivalents>4 Pertinent Negatives Pertinent Negatives: No Symptoms of GERD Cardiac & Pulmonary Exam Cardiac Exam: Normal S1/S2 Heart Sounds Pulmonary Exam: Clear Bilateral Breath Sounds Implantable Cardiac Device Does patient have a Pacemaker or an ICD?: No Airway Exam Known Difficult Airway: No Mallampati Class: 2 Mouth Opening: Normal (> 3cm) Thyromental Distance: Less than 3 cm Neck Range of Motion: Full ROM Neck Circumference: Normal Teeth Condition: Normal Dentition ASA Classification ASA Score: ASA 2 Emergency Case?: No NPO Status NPO Status: NPO Clears >2 hours, Solids >8 hours Anesthesia Plan Resuscitation Status: Full Code Anesthesia Technique: General Anesthesia Airway Planned: Natural Airway Monitors Used: Standard Monitors
[2023-09-16 13:19] VITALS: BMI 33.0
--- NOTE | 2023-09-16 15:20 | BOWEL_PTH ---
PATIENT: Meredith Lizama LOC: [facility] U#:[id number] AGE/SX: 63/F ROOM: RE09/16/[address]: Josefa Peace : 1960 BED: DIS: 09/16/2023 SPEC #: [id number] RECD: 09/16/23 18:06 STATUS: ANGIE DOZIER #: [id number] AUDREY: 09/16/23 15:[address]: Josefa Peace DEPT: Surgical Specimen RECD BY: Priya Cross ENTERED: 09/16/23 18:09 SP TYPE: Bowel OTHR DR: Iker Sanchez Tissues: 1 - BIOPSY BOWEL 2 - BIOPSY BOWEL 3 - STOMACH BIOPSY 4 - STOMACH BIOPSY 5 - ESOPHAGUS BIOPSY 6 - ESOPHAGUS BIOPSY 7 - BIOPSY BOWEL 8 - BIOPSY BOWEL 9 - BIOPSY BOWEL 10 - BIOPSY BOWEL 11 - BIOPSY BOWEL Procedures: GROSS AND MICRO LEVEL 4 Comments: [id number]
[2023-09-16 15:58] VITALS: BP 114/60; PULSE 84; RESP 16; TEMP 36.5; O2SAT 98
--- NOTE | 2023-09-16 16:01 | W.ANESPOSTOP ---
Postoperative Evaluation Date, Time and Location Date Performed: 09/16/23 Time Performed: 16:01 Patient Location: Day Surgery Unit Vital Signs Most Recent Imported Vital Signs: Most Recent Vital Signs Temp Pulse Resp BP Pulse Ox 36.5 C 84 16 114/60 98 09/16/23 15:58 09/16/23 15:58 09/16/23 15:58 09/16/23 15:58 09/16/23 15:58 Pain Score Most Recent Pain Score: Most Recent Pain Score Pain Level 0 09/16/23 15:58 Assessment Mental Status: Awake (Alert & Oriented to Patient Baseline) Airway and Respiratory Function: Patent airway with normal (patient baseline) respiratory exam Cardiovascular Function: Hemodynamically Stable Hydration Status: Adequately Hydrated Nausea & Vomiting: No Nausea or Vomiting Pain: Pt. Denies Any Pain Peripheral Nerve Block: Patient did not receive a nerve block
[2023-09-16 16:31] VITALS: BP 122/77; PULSE 70; RESP 16; TEMP 36; O2SAT 99
== END 2023-09-16 17:06 | disposition home or self-care (01) ==
LOC: SUR 11:42
PROVIDERS: PCP Nurse Practitioner Family; Visit Provider Surgery
PROC: (CPT 45385; principal; 2023-09-16 13:30)
DX: K62.5 Hemorrhage of anus and rectum; R10.9 Unspecified abdominal pain; K21.9 Gastro-esophageal reflux disease without esophagitis; G47.34 Idiopathic sleep related nonobstructive alveolar hypoventilation; K57.30 Diverticulosis of large intestine without perforation or abscess without bleeding; D12.3 Benign neoplasm of transverse colon; K64.8 Other hemorrhoids; D12.4 Benign neoplasm of descending colon; D12.5 Benign neoplasm of sigmoid colon; K31.A0 Gastric intestinal metaplasia, unspecified
CPT/HCPCS: 45385; 45380; 43239; 88305; J2001; J2704

== ENCOUNTER 2023-11-27 14:53 | Outpatient (REF) | payer MEDICAID, SELFPAY ==
[2023-11-27 20:03] LABS: ALT 25 U/L (14-59); AST 25 U/L (15-37); Albumin 4.1 g/dL (3.4-5.0); Alkaline Phosphatase 79 U/L (46-116); Anion Gap 7.5 mmol/L (3-11); BUN 16 mg/dL (7-18); Bilirubin, Total 0.43 mg/dL (0.2-1.0); CO2 28.5 mmol/L (21.0-32.0); CREATININE 0.9 mg/dL (0.55-1.02); Calcium 9.7 mg/dL (8.5-10.1); Chloride 104 mmol/L (98-107); Estimated GFR 72.73 (mL/min/1.73m2); Glucose 94 mg/dL (74-106); Potassium 3.9 mmol/L (3.5-5.1); Sodium 140 mmol/L (136-145); Total Protein 7.7 g/dL (6.4-8.2)
== END 2023-11-27 14:54 | disposition home or self-care (01) ==
LOC: NCHCN 14:53
PROVIDERS: PCP Nurse Practitioner Family; Visit Provider Nurse Practitioner Family
DX: M79.7 Fibromyalgia (principal)
CPT/HCPCS: 80053

== ENCOUNTER 2024-06-22 00:31 | Outpatient (CLI) | payer MEDICAID, SELFPAY ==
[2024-06-22 12:15] LABS: Abs Immature Grans 0.04 10^3/uL (0.0-0.06); Absolute Basophil Count 0.06 10^3/uL (0.0-0.2); Absolute Eosinophil Count 0.06 10^3/uL (0.0-0.7); Absolute Lymphocyte Count 3.33 10^3/uL (1.2-3.4); Absolute Monocyte Count 0.64 10^3/uL (0.1-0.8); Absolute Neutrophil Count 6.03 10^3/uL (1.2-6.7); Basophils % 0.6 %; Eosinophils % 0.6 %; HCT 44.2 % (36.0-46.0); HGB 14.3 g/dL (11.2-15.7); Immature Grans % 0.4 %; Lymphocytes % 32.8 %; MCH 29.7 pg (27.0-33.0); MCHC 32.4 % (32.0-36.0); MCV 92 fL (80-95); MPV 9.9 fL (8.0-11.0); Monocytes % 6.3 %; Neutrophils % 59.3 %; Platelet Count 314 10^3/uL (130-400); RBC 4.82 10^6/uL (3.93-5.22); RDW 13.8 % (11.7-14.6); RDW-SD 46.7 fL; WBC 10.16 10^3/uL (4.4-10.8)
[2024-06-22 12:50] LABS: Anion Gap 8.8 mmol/L (3-11); BUN 17 mg/dL (7-18); CO2 29.2 mmol/L (21.0-32.0); CREATININE 0.8 mg/dL (0.55-1.02); Calcium 9.8 mg/dL (8.5-10.1); Chloride 103 mmol/L (98-107); Estimated GFR 83.26 (mL/min/1.73m2); Glucose 87 mg/dL (74-106); Potassium 3.6 mmol/L (3.5-5.1); Sodium 141 mmol/L (136-145)
== END 2024-06-22 00:32 | disposition home or self-care (01) ==
PROVIDERS: PCP Nurse Practitioner Family; Visit Provider Student in an Organized Health Care Education/Training Program
DX: R39.9 Unspecified symptoms and signs involving the genitourinary system (principal); N20.0 Calculus of kidney
CPT/HCPCS: 36415; 80048; 85025; 87086

== ENCOUNTER 2024-07-12 18:22 | Outpatient (REF) | payer MEDICAID, SELFPAY | END 2024-07-12 18:23 | disposition home or self-care (01) | LOC: LBN 18:22 | PROVIDERS: PCP Nurse Practitioner Family; Visit Provider Physician Assistant | DX: N20.0 Calculus of kidney (principal) | CPT/HCPCS: 87086 ==

== ENCOUNTER 2024-08-16 02:23 | Outpatient (CLI) | payer MEDICAID, SELFPAY ==
--- NOTE | 2024-08-16 | DI.DEXA_ITS ---
Exam(s) XR DEXA BONE DENSITY W/WO BEATRIZ EXAM: XR DEXA BONE DENSITY W/WO BEATRIZ CLINICAL HISTORY: Screening for Osteoporosis Z13.820 TECHNIQUE: COMPARISON: CR XR HIP RT COMPLETE AP PELVIS from 10/15/2022 FINDINGS: Lateral Spine Image: Unremarkable. No compression deformities identified. Left hip: Total T-Score: -0.5 Total Z-Score: 0.6 T- and Z-scores: Within normal limits. Lumbar Spine: Total T-Score: 0.2 Total Z-Score: 1.8 T- and Z-scores: Within normal limits. IMPRESSION: No evidence of osteoporosis.
== END 2024-08-16 02:43 ==
LOC: DI 02:23
PROVIDERS: PCP Nurse Practitioner Family; Visit Provider Nurse Practitioner Family
DX: Z13.820 Encounter for screening for osteoporosis (principal)
CPT/HCPCS: 77080

== ENCOUNTER 2024-09-01 02:53 | Outpatient (CLI) | payer MEDICAID, SELFPAY ==
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
== END 2024-09-01 03:13 ==
LOC: DI 02:53
PROVIDERS: PCP Nurse Practitioner Family; Visit Provider Nurse Practitioner Family
DX: M48.07 Spinal stenosis, lumbosacral region (principal)
CPT/HCPCS: 72148

== ENCOUNTER 2025-01-06 02:10 | Outpatient (CLI) | payer MEDICAID, SELFPAY ==
[2025-01-06 16:12] LABS: HCT 41.7 % (36.0-46.0); HGB 13.5 g/dL (11.2-15.7); MCH 28.7 pg (27.0-33.0); MCHC 32.4 % (32.0-36.0); MCV 89 fL (80-95); MPV 9.9 fL (8.0-11.0); Platelet Count 315 10^3/uL (130-400); RBC 4.71 10^6/uL (3.93-5.22); RDW 13.6 % (11.7-14.6); RDW-SD 44.3 fL; WBC 8.76 10^3/uL (4.4-10.8)
[2025-01-06 18:10] LABS: Anion Gap 8.6 mmol/L (3-11); BUN 10 mg/dL (9-23); CO2 28.4 mmol/L (20.0-31.0); Calcium 9.3 mg/dL (8.3-10.6); Chloride 104 mmol/L (98-107); Glucose 84 mg/dL (74-106); Potassium 3.9 mmol/L (3.5-5.1); Sodium 141 mmol/L (136-145)
== END 2025-01-06 02:11 | disposition home or self-care (01) ==
LOC: LBO 02:10 → LBN 15:52
PROVIDERS: PCP Nurse Practitioner Family; Visit Provider Student in an Organized Health Care Education/Training Program
DX: M16.11 Unilateral primary osteoarthritis, right hip (principal); Z01.818 Encounter for other preprocedural examination
CPT/HCPCS: 80048; 85027

== ENCOUNTER 2025-01-06 14:51 | Outpatient (CLI) | payer MEDICAID, SELFPAY ==
--- NOTE | 2025-01-06 14:15 | DI.RAD_ITS ---
Exam(s) XR PELVIS AP EXAM: XR PELVIS AP CLINICAL HISTORY: DJD R HIP. TECHNIQUE: 2D digital imaging was performed. Single AP view with template ball. COMPARISON: CR XR HIP RIGHT W PELVIS from 09/28/2024 FINDINGS: BONES: No acute fracture is present. No bony destructive lesion is seen. There are subchondral cysts in the superior acetabulum and superior right femoral head. No subchondral collapse is evident. JOINTS: No dislocation present. There is severe narrowing of the superior right hip joint space. There is prominent spurring at the acetabulum. There is spurring at the margin of the femoral head. There is mild to moderate narrowing of the left hip joint space and mild periarticular spurring. The SI joints extent are unremarkable. SOFT TISSUE: Normal. IMPRESSION: Severe degenerative changes of the right hip. DATA REPOSITORY: RADIATION DOSE DELIVERED:
== END 2025-01-06 14:52 | disposition home or self-care (01) ==
LOC: DIORS 14:51
PROVIDERS: PCP Nurse Practitioner Family; Visit Provider Physician Assistant
DX: M16.11 Unilateral primary osteoarthritis, right hip (principal)
CPT/HCPCS: 72170

== ENCOUNTER 2025-01-11 06:01 | Day surgery (SDC) | payer MEDICAID, SELFPAY ==
--- NOTE | 2025-01-10 15:21 | W.ANESPRE ---
General Info Date of Service Date Performed: 01/11/25 Height: 5 ft 2 in Weight: 83.915 kg Body Mass Index (BMI): 33.8 Surgical Procedure: Operation Date: 01/11/25 07:50 Proposed Procedure Side Surgeon p Hip Total Hip Anterior Right Roberto Bar MD Meds Allergies and Home Medications Allergies Allergy/AdvReac Type Severity Reaction Status Date / Time latex Allergy Severe Skin Rash Verified 01/11/25 06:18 NSAIDS (Non-Steroidal Allergy Severe Other (See Verified 01/11/25 06:18 Anti-Inflamma Comment) paroxetine (From Paxil) AdvReac Intermediate Nausea Verified 01/11/25 06:18 Home Medication Medication Instructions Recorded magnesium chloride 70 mg 210 mg PO DAILY 12/10/21 (magnesium chloride) tablet,delayed release ketoconazole 2 % topical cream 1 applic topical BID 09/02/23 ascorbate calcium (vitamin C) 500 500 mg PO DAILY 01/06/25 mg tablet cholecalciferol (vitamin D3) 50 50 mcg PO DAILY 01/07/25 mcg (2,000 unit) capsule (D3) nystatin 100,000 unit/gram topical 1 applic topical DAILY PRN 01/07/25 powder zinc 50 mg capsule 50 mg PO DAILY 01/07/25 acetaminophen 500 mg tablet 1,000 mg (2 x 500 mg) PO Q8H PRN 01/11/25 pain #90 tabs aspirin 81 mg tablet,delayed 81 mg PO BID 30 days #60 tabs 01/11/25 release celecoxib 100 mg capsule (Celebrex) 100 mg PO BID #60 caps 01/11/25 dexamethasone 4 mg tablet 4 mg PO DAILY #2 tabs 01/11/25 docusate sodium 100 mg capsule 100 mg PO BID #28 caps 01/11/25 (Colace) oxycodone 5 mg tablet 5 mg PO Q6H PRN #12 tabs 01/11/25 pantoprazole 40 mg tablet,delayed 40 mg PO DAILY #14 tabs 01/11/25 release Current Visit Medications: Current Medications Generic Name Dose Route Start Last Admin Trade Name Freq PRN Reason Stop Dose Admin Acetaminophen 1,000 mg 01/11/25 06:00 Acetaminophen 500 Mg Tab PO 01/11/25 23:59 PREOP DREA Celecoxib 400 mg 01/11/25 06:00 Celecoxib 200 Mg Cap PO 01/11/25 23:59 PREOP DREA Ringer's Solution 1,000 mls @ 80 mls/hr 01/11/25 06:00 IV 01/11/25 23:59 INFUSION DREA Cefazolin Sodium/Dextrose 2 gm in 50 mls @ 100 mls/hr 01/11/25 06:00 Ancef Duplex IVPB 01/11/25 23:59 PREOP DREA Tranexamic Acid/Sodium Chloride 1,000 mg in 100 mls @ 600 mls/hr 01/11/25 06:00 IVPB 01/11/25 23:59 PREOP DREA IV Miscellaneous Supplies 1 each 01/11/25 06:00 Iv Access IV 01/11/25 23:59 DIRECTED DREA Sodium Chloride 0 ml 01/11/25 06:00 Normal Saline Flush 10 Ml Syr IV 01/11/25 23:59 PRN PRN Sodium Chloride 0 ml 01/11/25 06:00 Normal Saline 10 Ml Vial IJ 01/11/25 23:59 DIRECTED PRN Sterile Water 0 ml 01/11/25 06:00 Water,Injection,Sterile 10 Ml Vial IJ 01/11/25 23:59 DIRECTED PRN PFSH Active Problems Active Problems: Problem Status Onset Code Tubular adenoma of colon Acute ~09/15/ D12.6 Colon polyp Acute K63.5 Diverticula of colon Acute K57.30 Internal hemorrhoids with complication Acute K64.8 Hiatal hernia with GERD Acute K21.9, K44.9 Rectal bleeding Acute K62.5 Trochanteric bursitis, right hip Acute M70.61 Femoroacetabular impingement of right hip Acute M25.851 Degenerative joint disease of right hip Chronic M16.11 Obesity Chronic E66.9 Fibromyalgia Acute M79.7 Prediabetes Acute R73.03 Nonalcoholic steatohepatitis (FLANAGAN) Acute K75.81 Palpitations Acute R00.2 Mitral regurgitation Chronic I34.0 Medical History Medical History Sleep-related nonobstructive alveolar hypoventilation, idiopathic Mass of right breast GERD (gastroesophageal reflux disease) Macular degeneration Lumbar radiculopathy (05/19/15) L sided Reflux gastritis Knee pain, left BMI 39.0-39.9,adult Hyperlipidemia Depression Bursitis of hip receiving injections Sciatica of right side 04/2015 beginning Gabapentin Surgical History Surgical History History of kidney surgery [place] 09[place]2024 [place] [facility] [place] of esophagogastroduodenoscopy (~08/2023) History of colonoscopy (~08/2023) Ligation of fallopian tube Tonsillectomy and adenoidectomy Repair, Pyloric Stenosis section Colonoscopy - IV Sedation (09/12/15) Dr Weller, repeat 10 yrs Tobacco Smoking/Tobacco Use Status: Never Passive smoking exposure: Yes Alcohol Alcohol Intake: current Alcohol intake frequency: a few times a month Substance Use Substance use: Never Substance use type: does not use Vital Signs and Lab Results Vital Signs Most Recent Vital Signs in EMR: Temp Pulse Resp BP Pulse Ox 36.7 C 78 16 136/69 96 01/11/25 06:05 01/11/25 06:05 01/11/25 06:05 01/11/25 06:05 01/11/25 06:05 Lab Results Complete Blood Count: WBC, (4.4-10.8) 8.76 10^3/uL 01/06/25, 15:25 RBC, (3.93-5.22) 4.71 10^6/uL 01/06/25, 15:25 Hgb, (11.2-15.7) 13.5 g/dL 01/06/25, 15:25 Hct, (36.0-46.0) 41.7 % 01/06/25, 15:25 Plt Count, (130-400) 315 10^3/uL 01/06/25, 15:25 Complete Metabolic Panel: Sodium, (136-145) 141 mmol/L 01/06/25, 15:25 Potassium, (3.5-5.1) 3.9 mmol/L 01/06/25, 15:25 Chloride, (98-107) 104 mmol/L 01/06/25, 15:25 Carbon Dioxide, (20.0-31.0) 28.4 mmol/L 01/06/25, 15:25 BUN, (9-23) 10 mg/dL 01/06/25, 15:25 Creatinine, (0.55-1.02) 0.6 mg/dL 01/06/25, 15:25 Est GFR (CKD-EPI 2020), (mL/min/1.73m2) 105.08 01/06/25, 15:25 Calcium, (8.3-10.6) 9.3 mg/dL 01/06/25, 15:25 Glucose, (74-106) 84 mg/dL 01/06/25, 15:25 Anesthesia Assessment and Plan Anesthesia History Personal History: No History of Anesthesia Complications Family History: No Family History of Anesthesia Complications Exercise Tolerance Exercise Tolerance: Metabolic Equivalents>4 Cardiac & Pulmonary Exam Cardiac Exam: Normal S1/S2 Heart Sounds Pulmonary Exam: Clear Bilateral Breath Sounds Implantable Cardiac Device Does patient have a Pacemaker or an ICD?: No Airway Exam Known Difficult Airway: No Mallampati Class: 2 Mouth Opening: Normal (> 3cm) Thyromental Distance: Less than 3 cm Neck Range of Motion: Full ROM Neck Circumference: Normal Teeth Condition: Normal Dentition ASA Classification ASA Score: ASA 2 Emergency Case?: No NPO Status NPO Status: NPO Clears >2 hours, Solids >8 hours Anesthesia Plan Resuscitation Status: Full Code Anesthesia Technique: Spinal Anesthesia Airway Planned: Natural Airway Monitors Used: Standard Monitors Preoperative Comments:: 64 yo for PATRICE. Sig PMHx: A-fib (stated by her. most recent ECG I see is sinusOSA (is supposed to be on nocturnal O2 but has not been using it I don't notice a difference), hiatal hernia/GERD (denies issues, no meds), fibromyalgia, PreDM (no meds), lumbar radiculopathy/sciatica/stenosis, cervical pain/headaches, depression. Never smoker, occ EtOH. Lumbar MRI: moderate central canal stenosis at L5-S1. Mild stenosis L4-L5 ECHO: LVEF 60-65%, trace MR/TR. ECG: sinus. Previous Anes: - colo, prop, natural airway, no issues. Discussed plan of spinal vs GA.
[2025-01-11] VITALS (26 sets, daily range): BP systolic 87–141; BP diastolic 49–88; PULSE 55–85; RESP 11–22; TEMP 36.1–36.7; O2SAT 94–98; BMI 33.8
[2025-01-11] MEDS: Acetaminophen 500 MG TAB 1000 MG PO (06:41)
[2025-01-11] MEDS: Lactated Ringers 1,000 ML 80 ML IV (07:00)
--- NOTE | 2025-01-11 07:00 | DI.RAD_ITS ---
Exam(s) XR HIP RT IN OR EXAM: XR HIP RT IN OR CLINICAL HISTORY: Degenerative joint disease of right hip. TECHNIQUE: 2D and realtime digital imaging was performed. COMPARISON: CR XR PELVIS AP from 01/06/2025 FINDINGS: Hard copy image shows placement of a right hip prosthesis. The alignment appears satisfactory. Please see procedure note for details. Fluoro time: 29.6seconds RADIATION DOSE DELIVERED: Kar=2.95 mGy
--- NOTE | 2025-01-11 07:02 | PDOC.DSDIS_ITS ---
Date of service: 01/11/25 Discharge Plan Disposition Patient Disposition: Home Condition: Good Discharge Details Reason For Visit: Right hip DJD Attending Provider: Roberto Bar Primary Care Provider: Pamela Sanchez Home Meds and New Rx's Prescriptions: New aspirin 81 mg tablet,delayed release (DR/EC) 81 mg PO BID 30 Days Qty: 60 0RF acetaminophen 500 mg tablet 1,000 mg PO Q8H PRN Qty: 90 0RF Rx Instructions: Take two tablets up to every 8 hours as needed for pain pantoprazole 40 mg tablet,delayed release (DR/EC) 40 mg PO DAILY Qty: 14 0RF Rx Instructions: Take one tablet once daily dexamethasone 4 mg tablet 4 mg PO DAILY Qty: 2 0RF Rx Instructions: Take one tablet once daily for two days docusate sodium [Colace] 100 mg capsule 100 mg PO BID Qty: 28 0RF celecoxib [Celebrex] 100 mg capsule 100 mg PO BID Qty: 60 0RF oxycodone 5 mg tablet 5 mg PO Q6H PRNQty: 12 0RF Rx Instructions: Take one tablet up to every 6 hours as needed for severe postoperative pain Continued magnesium chloride 70 mg tablet,delayed release (DR/EC) 210 mg PO DAILY ascorbate calcium (vitamin C) 500 mg tablet 500 mg PO DAILY ketoconazole 2 % cream 1 applic topical BID cholecalciferol (vitamin D3) [D3-2000] 50 mcg (2,000 unit) capsule 50 mcg PO DAILY zinc 50 mg capsule 50 mg PO DAILY nystatin 100,000 unit/gram powder 1 applic topical DAILY PRN Discharge Instructions Additional Instructions: Total Hip Discharge Instructions Activity: The most important activity is to walk. You should try to take short walks a few times a day. You have no restrictions on movement or positioning, but do not try to force what you do. You will find some stiffness and weakness with hip flexion (lifting your knee). Do not try to strengthen this too early, continue to practice walking and stairs and this will come. - Outpatient physical therapy can be helpful to help return you to a normal gait and improve your flexibility and strength. This can start around 2 weeks. For some patients, it´s not necessary. Usually this is determined at the time of discharge or at the first post-operative visit. - You should wear the JAJA hose on both legs for 2 weeks. Dressing: Keep the surgical dressing in place for at least one week. After the first week it may be removed and replace with light gauze and tape or nothing. It may get wet after 3 days but avoid soaking the dressing. If it gets wet, just lightly pat dry. It is important to always keep some gauze between skin folds, especially when you are sitting. Spend some time with the wound exposed when you are lying flat as the incision does wrinkle onto itself. Medications: - You should take Tylenol and an anti-inflammatory Celebrex as your primary pain control medications. If the Celebrex is too expensive or not covered, please call the office for another alternative (Advil/Ibuprofen or Naproxen/Aleve). - You have been prescribed a stronger pain medication Oxycodone for breakthrough pain, take as needed as prescribed. - You have also been prescribed a stomach acid reduction agent Pantoprozole to help reduce stomach acid and reflux. - You have also been prescribed Decadron to help with post-operative nausea and pain. You will take this for two days starting tomorrow. - You will be taking Aspirin 81mg twice a day for DVT prevention unless instructed otherwise. - If you have constipation you should take Colace (which has been prescribed) or Miralax (which is available [id number]). It takes most people 3-4 days to have a bowel movement. Follow-up: 2 weeks If you have any acute concerns or questions, please do not hesitate to contact the office at [phone]. You may contact Dr. Bar with any questions after hours through the hospital at [phone] or on his cell phone at [phone]. Stand Alone Forms: Portal Information Referrals: Roberto Bar MD [ [facility] STAFF PHYSICIAN, Orthopaedic Surgical] Equipment/Supplies: Walker Activity:: Elevate Remove Dressings/Wound Care:: Do Not Remove Shower/Bathe:: Cover Diet:: As Tolerated Discharge Orders Discharge Orders: Discharge Order (Routine); Ordered 01/11/25 Ordered By: Josefa Redding
--- NOTE | 2025-01-11 07:43 | W.PM.OP ---
Operative Note Operative Note PRE-OP DIAGNOSIS: Right Hip Osteoarthritis POST-OP DIAGNOSIS: same PROCEDURE: Right Anterior Total Hip Arthroplasty with Intraoperative Navigation SURGEON: Roberto Bar FAMILY DAY CARE WORKER: Josefa Redding ANESTHESIA TYPE: Spinal Refer to Anesthesia Record ESTIMATED BLOOD LOSS: 150 PATHOLOGY: none sent TOURNIQUET TIME: 0 COMPLICATIONS: None Patient was transported to: PACU Patient's condition: stable Implants: 1. Depuy Emphasys Acetabular Component, 50mm 2. Depuy Emphasys Acetabular Liner, 64w70lv 3. Depuy Actis Standard Collared Femoral Stem, Size 4 4. Depuy Altrx Ceramic Femoral Head, Size 36+5mm Indications: I have seen Meredith in clinic for symptoms of hip arthritis, confirmed with radiographic findings. She has exhausted nonoperative methods and was having significant limitations in daily function and desired better function and less pain. I discussed the technical details of a hip replacement. I explained the risks of the procedure to include, but not limited to, bleeding, infection, pain, stiffness, fracture, damage to nerves and vessels, damage to muscles and tendons, loosening, instability, leg length inequality, need for repeat procedure, blood clot and cardiopulmonary demise. Despite these risks, Meredith elected to proceed. Findings: There was significant signs of arthritis throughout the hip with osteophytes about the acetabulum and the femoral head-neck. Procedure Description: Meredith was greeted in the preoperative holding area where the correct side was identified and marked. The consent was reviewed with the patient and signed. The history and physical was updated. All questions were answered. She was taken back to the operating room. A spinal anesthestic was then administered. The feet were wrapped with cast padding and Coban and then placed into the boot liners and then into the boots. Care was taken to protect the skin and make sure the heels were fully down and the boots were stable. The patient was then positioned onto the HANA table. Both legs were held in a neutral position. SCDs were applied. The patient was then slid down onto a peroneal post. Prophylactic antibiotics in the form of Cefazolin were administered. 1g of Tranxemic Acid was given intravenously within 30 minutes of incision. The right leg was then prepped with Chloraprep and draped in a standard fashion. A second prep with Chloraprep was performed prior to placement of a shower-curtain type drape with Iodine impregnated skin protection. A timeout to confirm correct identity, side and site, procedure, allergies, anesthesia, and medical concerns was performed. An obliquely oriented incision was made starting lateral to the ASIS and running distal over the Tensor Fascia Miranda (TFL) muscle belly toward the fibular head, approximately 10cm. The skin and soft tissue was dissected sharply, through Ruthann´s fascia, and to the fascia of the TFL. With the fascia and superior border of the IT band identified, the fascia was incised with a new knife just above any perforators from the IT band. The TFL muscle belly was bluntly dissected away from the fascia and moved laterally. The fat between TFL and rectus was identified to ensure the dissection was not within the TFL. Blunt dissection created space between abductors and the capsule and retractor was placed over the lateral femoral neck. The fibers of the rectus femoris tendon were identified and these were freed from the anterior capsule. A second cobra retractor was placed around the medial femoral neck. The TFL was further retracted laterally to show the deep fascia. Careful dissection through this layer identified three main crossing vessels of the lateral femoral circumflex. These were cauterized in multiple locations and then cut without any noticeable bleeding. The TFL was further released bluntly from the deep fascia to expose anterior hip capsule and fat The soft tissue orthopaedic retractor was then placed beneath the TFL and against sartorius and medial soft tissues to protect and retract the soft tissues. A T-capsulotomy was then performed starting at the superior lateral acetabulum and moving distally to the intertrochanteric ridge. These capsular flaps were tagged with a No. 1 Vicryl and elevated from within. The capsular flaps were released to the shoulder of the lateral neck and to the lesser trochanter to give excellent visualization of the proximal femur. A neck osteotomy was performed using an oscillating saw based on preoperative templates. This cut started in the shoulder and of the lateral neck and exited medially. The saw was at all times directed medially to avoid injury to the greater trochanter. Gross traction was applied to the leg and the osteotomy opened. The femoral head was removed with a corkscrew, making sure to protect the TFL on its exit. Traction was released after head removal. This was measured on the back table to determine the starting reamer size. Portions of the rectus obscuring visualization were minimally elevated off the superior acetabulum. An anterior retractor was placed over the anterior wall between capsule and labrum and attached to the Gripper retraction system. The femur was rotated to 90 degrees and medial capsule was fully released until the lesser trochanter was palpable and visible; the femur was returned to 30 degrees. A posterior retractor was placed similarly between capsule and labrum. This provided excellent visualization. The contents of the cotyloid fossa were removed with electrocautery and the labrum was removed with a knife. There was a notable floor osteophyte. There was significant chondromalacia of the superior acetabulum. Acetabular reaming began with a 46mm reamer. This first reaming was directed anterior to posterior and medial to get down to the true floor. This was inspected and reamed until the true floor was reached. The anterior retractor was then released and entry and exit was provided by traction on the capsular flaps. I then reamed sequentially up to a 50mm reamer where good fit was obtained. The larger reamers were oriented based on anatomical reference of the anterior and lateral villalobos to ensure proper abduction and anteversion. Positioning and size was confirmed with the fluoroscopy. A 50mm Depuy Emphasys acetabular component was selected. The acetabulum was reamed around the periphery with the selected acetabular size to prevent a rim fit. The deep tissues were irrigated. The acetabular component was then impacted in a position of about 40-45 degrees of abduction and 15-20 degrees of anteversion, using the patient´s anatomy as the ultimate landmark. Fluoroscopy was used to confirm this. There was excellent radiologist diagnostic of the acetabular component and the inserting handle was removed. The acetabular liner, Depuy Emphasys 49w77vo polyethylene liner, was inserted and lined up with the tines of the acetabular component. There was no soft tissue interposition. The liner was then impacted into position and confirmed to be well-seated. A portion of the nancy-articular cocktail was then injected around the acetabulum into the capsule and periosteum. This cocktail consisted of 200mg of Ropivacaine, 0.5mg of Epinephrine, and 30mg of Ketorolac, diluted to 100cc. The leg was rotated to 120 degrees. Any remaining medial capsule was released until the lesser trochanter was easily palpable. A retractor was placed medially. The lateral capsule was further released into the shoulder to allow access to the greater trochanter. A Yusuf retractor was placed over the greater trochanter which allowed the trochanter to flip in front of the capsule for excellent exposure. The leg was brought down into maximal extension and 20 degrees of adduction while ensuring there was no impingement on the acetabulum. Any remnant capsule within the trochanter was released. Piriformis and obturator externis were identified and protected. There was excellent access to the proximal femur. The lateral neck remnant was removed with a rongeur. A blunt canal probe was used to identify the canal and trajectory for later broaching. A box osteotome initiated the broach course. A small curved rasp and a curved curette were used to work laterally. Broaching then began with a starter Actis broach. This was inserted manually around the trochanter and into the canal before mallet blows. The broach was seated to a few millimeters below the cut level based on the neck cut and the preoperative template. Sequential broaching was continued with the Intacctse pneumatic broaching device until a tight fit was obtained with good rotational control of the femur. A trial standard neck was inserted along with a +1.5 trial head. The leg was brought out of extension and adduction and then reduced with traction and internal rotation. The leg was stable anteriorly in a position of 30 degrees of extension and 90 degrees of external rotation. Fluoroscopy was used to ensure there was no fracture and the stem was seated well. Leg lengths were checked with an AP pelvis and pelvic reference points. Skyrider navigation system was used to confirm appropriate positioning and leg length and offset. This slightly undercorrected the offset but was close on leg length, so the stem was advanced 2-3mm and increased head size to +5mm. Once content with the desired offset and leg lengths, the leg was brought back into extension, external rotation and adduction. The periosteum and surrounding tissue was injected with remaining portion of the nancy-articular cocktail. The proximal femur was irrigated as well as the deep tissues. The Depuy Actis standard collared stem, size 4, was then manually inserted into the proximal femur making sure to control rotation. It was then malleted into position with light blows, giving breaks to allow bone expansion and decrease risk of fracture. The selected Depuy Altrx Ceramic Head, size 36+5mm, was then placed onto the clean and dry trunnion and secured with impaction onto the tapered fit. The leg was brought back out of extension and adduction and reduced with traction and internal rotation. Stability was confirmed with no shuck at 90 degrees of external rotation and 30 degrees of extension. No impingement through range of motion arc. Final x-ray images were obtained with fluoroscopy to confirm adequate positioning and no intraoperative fracture. The deep tissues were thoroughly irrigated with Surgiphor, betadine solution. This was allowed to sit in the wound for 3 minutes before being thoroughly irrigated out with normal saline. The capsule was then reapproximated with the previously placed sutures and the indirect head of the rectus was inspected and reapproximated with a #1 Vicryl. The TFL fascia was finally closed with a No. 2 Stratafix, barbed suture. Deep tissues were then reapproximated with 0 Vicryl and a running 2-0 Vicryl. The skin was closed with a running 4-0 Monocryl in a subcuticular fashion. This was reinforced with skin glue. A Mepilex silver dressing was applied. At the end of the case, all counts were correct. Meredith was transferred to the hospital bed without difficulty and suffering no apparent complication. She has a good prognosis. Physical therapy will start today and without restrictions, weight-bearing as tolerated. Aspirin 81mg BID will be used for DVT prophylaxis. Date of Procedure: 01/11/25
[2025-01-11] MEDS: ceFAZolin 2 GM/50 ML BAG IVPB (07:51)
[2025-01-11] MEDS: TRANEXAMIC ACID/SOD. CHL. 1,000 MG/100 ML BAG 600 MG IVPB (07:54)
[2025-01-11] MEDS: ROPIvacaine 0.2% 200 MG/100 ML BAG (08:14)
[2025-01-11] MEDS: Ketorolac 30 MG/ML VIAL (08:14)
[2025-01-11] MEDS: EPINEPHrine 1 MG/ML AMP pres-free (08:14)
[2025-01-11] MEDS: HYDROmorphone 2 MG/ML SYR IVP ×4 (09:24→09:55)
--- NOTE | 2025-01-11 09:33 | W.ANESPOSTOP ---
Postoperative Evaluation Date, Time and Location Date Performed: 01/11/25 Time Performed: 09:34 Patient Location: PACU Vital Signs Most Recent Imported Vital Signs: Most Recent Vital Signs Temp Pulse Resp BP Pulse Ox 36.6 C 63 14 104/49 L 97 01/11/25 09:22 01/11/25 09:25 01/11/25 09:25 01/11/25 09:22 01/11/25 09:25 Pain Score Most Recent Pain Score: Most Recent Pain Score Pain Level 4 01/11/25 06:05 Assessment Mental Status: Awake (Alert & Oriented to Patient Baseline) Airway and Respiratory Function: Patent airway with normal (patient baseline) respiratory exam Cardiovascular Function: Hemodynamically Stable Hydration Status: Adequately Hydrated Nausea & Vomiting: No Nausea or Vomiting Pain: Pain is tolerable per patient Peripheral Nerve Block: Patient did not receive a nerve block
[2025-01-11] MEDS: Tranexamic Acid 650 MG TAB 1300 MG PO (10:36)
[2025-01-11] MEDS: oxyCODONE 5 MG TAB PO (10:37)
--- NOTE | 2025-01-11 11:20 | PT.INIE ---
PT Notes Visit Reasons: Right hip DJD Physical Therapy Day Surgery Initial Evaluation Date: 01/11/2025 Referring Doctor: VIVIEN Aguirre PT Orders: PT CONSULT: S/P Ortho surgery Precautions: WBAT through the right LE with AD. Patient Profile/Admitting Diagnosis: Meredith is a 64-year-old female with degenerative joint disease of the right hip and is status post right total hip arthroplasty on postoperative day 0. PMHX: All Active Problems (Updated 10/20/23 @ 07:33 by Brenda Vilelda RN) Tubular adenoma of colon (Acute ~09/16/23) Colon polyp (Acute) Diverticula of colon (Acute) Internal hemorrhoids with complication (Acute) Hiatal hernia with GERD (Acute) Rectal bleeding (Acute) Trochanteric bursitis, right hip (Acute) Femoroacetabular impingement of right hip (Acute) Degenerative joint disease of right hip (Chronic) POCUS INJECTION: 08/04/23; 02/06/2023 Obesity (Chronic) Fibromyalgia (Acute) Prediabetes (Acute) Nonalcoholic steatohepatitis (FLANAGAN) (Acute) Palpitations (Acute) Mitral regurgitation (Chronic) Medical History (Updated 10/20/23 @ 07:33 by Brenda Villeda RN) Sleep-related nonobstructive alveolar hypoventilation, idiopathic Mass of right breast GERD (gastroesophageal reflux disease) Macular degeneration Lumbar radiculopathy (05/19/15) L sided Reflux gastritis Knee pain, left BMI 39.0-39.9,adult Hyperlipidemia Depression Bursitis of hip receiving injections Sciatica of right side 04/2015 beginning Gabapentin Surgical History (Updated 09/17/23 @ 14:31 by Jackie Dee) History of esophagogastroduodenoscopy (~08/2023) History of colonoscopy (~08/2023) Ligation of fallopian tube Tonsillectomy and adenoidectomy Repair, Pyloric Stenosis section Colonoscopy - IV Sedation (09/12/15) Dr Weller, repeat 10 yrs Social History/Home Situation: Lives with in a private home with a ramp to enter. Independent with all aspects of ADLs prior to surgery although has had worsening pain through the right hip due to arthritis progression. Equipment Owned/DME: [facility] Subjective: Reported 4/10 pain on the right hip at rest and with movement. Denied headache, chest pain, and lightheadedness throughout session. Objective: General Observation: Mepilex Ag over surgical incision. TEDS to be legs. Mental Status: A and O x 4 Pain: 4/10 in the right hip ROM: Right Lower Extremity: Hip flexion allowed up to 110 degrees. Hip abduction WFL. Knee flexion WFL. Ankle dorsiflexion WFL. Ankle plantarflexion WFL. Left Lower Extremity: Hip flexion WFL. Hip abduction WFL. Knee flexion WFL. Ankle dorsiflexion WFL. Ankle plantarflexion WFL. Strength: Right Lower Extremity: Hip flexors 3-/5. Hip abductors 4-/5. Knee flexors 4-/5. Knee extensors 4-/5. Ankle dorsiflexors 5/5. Ankle plantarflexors 5/5. Left Lower Extremity:Hip flexors 5/5. Hip abductors 5/5. Knee flexors 5/5. Knee extensors 5/5. Ankle dorsiflexors 5/5. Ankle plantarflexors 5/5. Sensation: Intact as to pain and light prssure in B LE Bed Mobility/Transfers: Minimal cueing provided for use of B hands as needed for support, movement sequence, AD management, and posture to reduce fall risk and minimize pain report Supine to sit standby assist Sit to stand contact-guard assist with FWW Stand to sit standby assist with FWW Bed to chair standby assist with FWW Gait: 150 feet of level surface ambulation using the FWW and stand by assist of PT. Step-to gait pattern. Much improved walking pattern per patient and patient's friend with less gimping. Minimal verbal cueing needed for AD management, limb movement sequence, and weight distribution onto walker. . Balance: Static Sitting: Normal Dynamic Sitting: Normal Static Standing: Fair Dynamic Standing: Fair Special Tests: Mobility Limitations Standardized Measure [facility] AM-PAC 6 clicks Basic Mobility Inpatient Short Form: Raw Score: 24 CMS Score: 0% deficit Informed Consent/Education: Patient instructed in purpose of PT consult. Packet containing PATRICE exercise protocol has been given to patient. Education and training on initial set of exercises that can be done at home have been completed with patient. Trained patient with correct performance of exercises below to maximize motor control, joint flexibility, soft tissue extensibility of the R hip musculature to facilitate return to independent functional mobility performance. Access Code: [email or web address] URL: [email or web address] Date: 01/11/2025 Prepared by: Kimmie Byrd Exercises - Gluteal Sets - 1 x daily - 7 x weekly - 1 sets - 10 reps - 5 hold - Supine Heel Slide - 1 x daily - 7 x weekly - 1 sets - 10 reps - 5 hold - Supine Ankle Pumps - 1 x daily - 7 x weekly - 1 sets - 10 reps - 5 hold - Seated March - 1 x daily - 7 x weekly - 1 sets - 10 reps - 5 hold - Seated Long Arc Quad - 1 x daily - 7 x weekly - 1 sets - 10 reps - 5 hold Assessment: Patient requires the use of a front wheeled walker for mobility ADL performance to maximize independence and reduce fall risk. Patient presents with clinical signs and symptoms consistent with current/admitting diagnoses that have resulted to mobility limitations, gait instability, generalized weakness, and impairment of motor control as demonstrated by the following impairment level findings: 1. Decreased strength to right hip major muscle groups 2. Impaired standing balance Impairments are contributing to the following functional limitations: 1. Inability to safely ambulate without assistive device 2. Increase completion time for mobility ADL performance 3. Increased fall risk Patient is assessed as a 47589 moderate complexity based on the following: History: 64-year-old female with impairment level findings, functional limitations, and past medical history as indicated above Examination: Demonstrable impairment in strength, balance, and mobility level with underlying impairments and functional limitations as documented above Presentation: Evolving Decision Makin moderate complexity Goals: N/A. PT evaluation and 1-2 treatment sessions only for functional mobility training using recommended AD and for HEP instruction. Plan of Care/Treatment Plan: N/A. PT evaluation and 1-2 treatment session only for functional mobility training using recommended AD and for HEP instruction. DISCHARGE RECOMMENDATIONS: Home when medically cleared by orthopedic surgeon. Recommend outpatient PT services in order to optimize functional mobility outcomes and facilitate return to independent community ambulation without an assistive device. TREATMENT CODE/TIME: 21841 x 20 minutes for 1 unit, 64091 x 15 minutes for 1 unit (11:20-11:55). Thank you for the opportunity to participate in the care of this patient. Kimmie Byrd PT, DPT, CLT [facility] [place], [place]
== END 2025-01-11 12:10 | disposition home or self-care (01) ==
PROVIDERS: PCP Nurse Practitioner Family; Visit Provider Student in an Organized Health Care Education/Training Program
PROC: (CPT 27130; principal; 2025-01-11 07:30)
DX: M16.11 Unilateral primary osteoarthritis, right hip (principal); K21.9 Gastro-esophageal reflux disease without esophagitis; I48.91 Unspecified atrial fibrillation
CPT/HCPCS: 27130; 20985; 97162; 97530; 73501; C1776; J0166; J0690; J1100; J1171; J1885; J2250; J2371; J2401; J2405; J2704; J2795

== ENCOUNTER 2025-01-24 16:11 | Outpatient (CLI) | payer MEDICAID, SELFPAY ==
--- NOTE | 2025-01-24 14:45 | DI.RAD_ITS ---
Exam(s) XR HIP RT COMPLETE AP PELVIS EXAM: XR HIP RT COMPLETE AP PELVIS CLINICAL HISTORY: 1ST POST OP S/P R PATRICE. TECHNIQUE: 2D digital imaging was performed. Two images were obtained. AP pelvis and right hip views were obtained. COMPARISON: CR XR PELVIS AP from 01/06/2025 XA XR HIP RT IN OR from 01/11/2025 FINDINGS: BONES: There are post operative changes of a right total hip arthroplasty present. No fracture or dislocation. JOINTS: The orthopedic hardware is in good position. No evidence of hardware loosening. SOFT TISSUE: Normal. IMPRESSION: Interval placement of a right total hip arthroplasty which appears in good position. DATA REPOSITORY: RADIATION DOSE DELIVERED:
== END 2025-01-24 16:12 | disposition home or self-care (01) ==
LOC: DIORS 16:11
PROVIDERS: PCP Nurse Practitioner Family; Visit Provider Student in an Organized Health Care Education/Training Program
DX: Z96.641 Presence of right artificial hip joint (principal)
CPT/HCPCS: 73502